=== PATIENT | female | born 1970 | race Caucasian/White ===

== ENCOUNTER 2018-11-21 13:31 | Emergency (ER) | payer OTHER ==
[~2018-11-21] VITALS: Ht 167.6 cm; Wt 86.2 kg
[2018-11-21] MEDS ORDERED: LISINOPRIL20 MG (14:15)
[2018-11-21] MEDS ORDERED: PLAVIX75 MG (14:15)
[2018-11-22] MEDS ORDERED: AVAPRO150 MG PO (12:25)
[2018-11-22] MEDS ORDERED: MECLIZINE HCL25 MG PO (12:25)
== END 2018-11-22 12:21 | disposition home or self-care (01) ==
LOC: ER 13:31 → CPU-OBS 14:05
DX: E11.22 Type 2 diabetes mellitus with diabetic chronic kidney disease (principal); I12.9 Hypertensive chronic kidney disease with stage 1 through stage 4 chronic kidney disease, or unspecified chronic kidney disease; N18.3 Chronic kidney disease, stage 3 (moderate); N17.8 Other acute kidney failure; E86.0 Dehydration; R80.8 Other proteinuria; R07.89 Other chest pain; R42 Dizziness and giddiness; E78.49 Other hyperlipidemia; F41.8 Other specified anxiety disorders; Z79.4 Long term (current) use of insulin